=== PATIENT | female | born 1960 | race Caucasian/White ===

== ENCOUNTER → 2023-05-28 07:59 | Outpatient (REF) | payer OTHER, SELFPAY | LOC: HWRAD 07:59 | PROVIDERS: ATTENDING PHYSICIAN Physician Assistant Medical | DX: R10.32 Left lower quadrant pain (principal); R10.9 Unspecified abdominal pain | CPT/HCPCS: 74177; Q9967 ==

== ENCOUNTER → 2023-06-30 11:07 | Outpatient (REF) | payer SELFPAY | LOC: HWCARD 11:07 | PROVIDERS: ATTENDING PHYSICIAN Pain Medicine Interventional Pain Medicine; FAMILY PHYSICIAN Physician Assistant Medical | DX: Z01.818 Encounter for other preprocedural examination (principal) | CPT/HCPCS: 93005 ==

== ENCOUNTER → 2024-02-09 10:56 | Outpatient (REF) | payer OTHER, SELFPAY | LOC: HWCARD 10:56 | PROVIDERS: ATTENDING PHYSICIAN Pain Medicine Interventional Pain Medicine; FAMILY PHYSICIAN Physician Assistant Medical | DX: Z01.818 Encounter for other preprocedural examination (principal) | CPT/HCPCS: 93005 ==

== ENCOUNTER → 2024-04-16 10:28 | Outpatient (REF) | payer OTHER, SELFPAY | LOC: HWWDC 10:28 | PROVIDERS: ATTENDING PHYSICIAN Physician Assistant Medical | DX: Z12.31 Encounter for screening mammogram for malignant neoplasm of breast (principal) | CPT/HCPCS: 77063; 77067 ==

== ENCOUNTER → 2024-05-28 16:07 | Outpatient (REF) | payer OTHER, SELFPAY | LOC: RAD 16:07 | PROVIDERS: ATTENDING PHYSICIAN Physician Assistant Medical | DX: R91.1 Solitary pulmonary nodule (principal) | CPT/HCPCS: 71270; Q9967 ==

== ENCOUNTER → 2024-06-15 10:02 | Outpatient (REF) | payer OTHER, SELFPAY | LOC: HWEVLT 10:02 | PROVIDERS: ATTENDING PHYSICIAN Radiology Vascular & Interventional Radiology | DX: I83.891 Varicose veins of right lower extremity with other complications (principal) | CPT/HCPCS: 93971 ==

== ENCOUNTER → 2024-11-09 10:24 | Outpatient (REF) | payer OTHER, SELFPAY | LOC: HWCARD 10:24 | PROVIDERS: ATTENDING PHYSICIAN Pain Medicine Interventional Pain Medicine; FAMILY PHYSICIAN Physician Assistant Medical | DX: Z01.818 Encounter for other preprocedural examination (principal) | CPT/HCPCS: 93005 ==